=== PATIENT | male | born 1980 | race Caucasian/White ===

== ENCOUNTER 2022-01-11 19:46 | Emergency (ER) | payer SELFPAY ==
[~2022-01-11] VITALS: Ht 172.7 cm; Wt 72.6 kg
[2022-01-11] MEDS ORDERED: NAPR-1172 PO (20:06)
[2022-01-11] MEDS ORDERED: AUG875 PO (20:06)
[2022-01-11] MEDS ORDERED: PRED20TA PO (20:06)
[2022-01-11 20:20] VITALS: BP_SYST 155
[2022-01-11 20:25] VITALS: BP_SYST 145
== END 2022-01-11 20:27 | disposition home or self-care (01) ==
LOC: SED 19:46
DX: J03.90 Acute tonsillitis, unspecified (principal); Z79.899 Other long term (current) drug therapy
CPT/HCPCS: 99283